=== PATIENT | female | born 2000 | race Caucasian/White ===

== ENCOUNTER → 2023-08-10 | Outpatient (CLI) | payer OTHER ==
[~2023-08-10] MED LIST: ANTIDEPRESSANT; BUSP10TA PO; CITA20TA9 PO; ETON1VAG VG
[2023-08-10 17:45] LABS: BASOPHIL % 0.3 % (0.0-0.2); EOSINOPHIL # 0.2 10^3/uL (0.0-0.2); EOSINOPHIL % 1.5 % (0.0-5.0); LYMPHOCYTES % 22.4 % (24.0-44.0); MEAN CORP HGB 30.6 pg (26-34); MEAN CORP HGB CONCENTRATION 34.1 g/dL (33-36.5); MEAN CORP VOLUME 89.5 fL (78-100); MONOCYTES # 1.1 10^3/uL (0.3-0.8); MONOCYTES % 9.5 % (5.0-12.0); NEUTROPHIL # 7.7 10^3/uL (1.8-7.7); NEUTROPHILS % 65.8 % (41.0-85.0); PLATELET COUNT 342 10^3/uL (150-400); RED BLOOD CELL 4.58 10^6/uL (4.00-5.20); RED CELL DISTRIBUTION WIDTH 12.3 % (11.5-14.5); WHITE BLOOD CELL 11.6 10^3/uL (4.5-11.0)
[2023-08-10 17:53] LABS: +ADD MANUAL DIFF(NO CHRG) NO
[2023-08-10 18:10] LABS: ALBUMIN(ML) 3.5 g/dL (3.4-5.0); ALBUMIN/GLOBULIN RATIO 1.093; BUN/CREATININE RATIO 9.57 (10.0-20.0); CARBON DIOXIDE 27.6 mmol/L (20.0-32); CREATININE SERUM 0.94 mg/dL (0.59-1.40); EST GFR, NON-AA 74.5 (>/=60); POTASSIUM 3.6 mmol/L (3.6-5.2)
== END | disposition home or self-care (01) ==
LOC: LAB 17:16
PROVIDERS: ATTEND Nurse Practitioner Adult Health
DX: R10.12 Left upper quadrant pain (principal); R10.30 Lower abdominal pain, unspecified; E66.01 Morbid (severe) obesity due to excess calories
CPT/HCPCS: 36415; 80053; 82150; 83690; 84439; 84443; 85025

== ENCOUNTER → 2023-08-24 | Outpatient (CLI) | payer OTHER | END | disposition home or self-care (01) | LOC: RAD 16:56 | PROVIDERS: ATTEND Nurse Practitioner Adult Health | DX: M54.12 Radiculopathy, cervical region (principal); M25.521 Pain in right elbow; M25.512 Pain in left shoulder; M54.2 Cervicalgia | CPT/HCPCS: 72040 ==

== ENCOUNTER → 2023-09-07 | Outpatient (CLI) | payer OTHER | END | disposition home or self-care (01) | LOC: LAB 17:15 | PROVIDERS: ATTEND Nurse Practitioner Adult Health | DX: R19.7 Diarrhea, unspecified (principal) | CPT/HCPCS: 87045; 87177 ==